=== PATIENT | female | born 1980 | race Caucasian/White ===

== ENCOUNTER 2019-09-29 16:13 | Emergency (ER) | payer MEDICAID ==
[~2019-09-29] VITALS: Ht 170.2 cm; Wt 61.0 kg
[2019-09-29] MEDS ORDERED: IBUPROFEN 600MG TABLET PO ONE (17:00)
[2019-09-29] MEDS ORDERED: PEN G BENZ/PEN G PROCAINE CR 1.2 MMU/2 ML IM ONE (17:00)
[2019-09-29 17:45] VITALS: BP 100/60
== END 2019-09-29 17:45 | disposition home or self-care (01) ==
LOC: ER 16:13
DX: J03.90 Acute tonsillitis, unspecified (principal)
CPT/HCPCS: 96372; 99283; J0558